=== PATIENT | male | born 1945 | race Caucasian/White ===

== ENCOUNTER → 2018-08-18 | Outpatient (CLI) | payer MEDICARE, BC ==
[2011-11-28 09:20] VITALS: BP 122/70
[~2018-08-18] MED LIST: CEPHALEXIN250 M2 PO; LORTAB 7.5/5001 TAB PO; MOTRIN400 MG PO
== END ==
LOC: PT 10:57
DX: Z01.818 Encounter for other preprocedural examination (principal); M17.12 Unilateral primary osteoarthritis, left knee

== ENCOUNTER 2018-09-18 13:00 | Outpatient (RCR) | payer MEDICARE, BC ==
[2011-11-28 09:20] VITALS: BP 122/70
== END 2018-09-18 13:30 | disposition home or self-care (01) ==
LOC: PT 13:00
DX: Z47.1 Aftercare following joint replacement surgery (principal); Z96.652 Presence of left artificial knee joint
CPT/HCPCS: G8978-GP; G8979-GP